=== PATIENT | male | born 1990 | race African-American/Black ===

== ENCOUNTER 2020-09-06 10:10 | Emergency (ER) | payer OTHER ==
--- OUTSIDE RECORDS SUMMARY | 2020-09-06 10:13 | XMS REPORT | Continuity of Care Document ---
:1990 Author Organization [facility] t Address [address] [place] [address] Care Team Providers Name Role Phone Lab, Fam Pob I Attending Clinician Unavailable Doctor Unassigned, Name Attending Clinician Unavailable Ken Sutton Attending Clinician Problems This patient has no known problems. Allergies, Adverse Reactions, Alerts This patient has no known allergies or adverse reactions. Medications This patient has no known medications. Procedures This patient has no known procedures. Encounters Start End Encounter Admission Attending Care Care Encounter Source Date/Time Date/Time Type Type Clinicians Facility Department ID 2019-10-29 2019-10-29 Laboratory Lab, [facility] [id number] 10:54:55 11:14:55 Only Fam Pob I Health [id number] [place] [id number] Professio [phone] [address] 2019-10-29 2019-10-29 Letter Doctor ELISEO [id number] 00:00:00 00:00:00 (Out) Unassigned, HODAN [id number] [place] [facility] [phone] [id number] 2019-10-28 2019-10-28 [place] [facility] [id number] 00:00:00 00:00:00 [facility] [id number] [place] [id number] Professio [phone] [address] Results This patient has no known results.
[2020-09-06] MEDS ORDERED: IBUPROFEN 400 MG TAB ONE (11:18)
--- NOTE | 2020-09-06 11:31 | RAD REPORT ---
EXAM DESCRIPTION: CT - Stone Protocol - 09/06/2020 11:04 am CLINICAL HISTORY: Flank pain. PAIN COMPARISON: No comparisons TECHNIQUE: Axial images were obtained without oral or IV contrast. Lack of contrast limits solid org an and vascular assessment. The [id number]-[id number] spans the entirety of the system partially obscuring uppermost abdomen and lung bases. Coronal reformatted images were obtained and reviewed. All CT scans are performed using dose optimization technique as appropriate and may include automated exposure control or mA/KV adjustment according to patient size. FINDINGS: The lower lung thomas are clear. Imaged portions of the liver and spleen show no suspicious findings on non-contrast imaging. The panc reas and adrenal glands are normal. Tiny fat containing umbilical hernia. No pathologic lymphadenopa thy in the abdomen or pelvis. No urinary tract stones or obstructive uropathy. No bowel obstruction, free air, free fluid or abscess. Normal appendix noted. No significant bony abnormality. IMPRESSION: No urinary tract stones or obstructive uropathy. No acute findings seen.
--- NOTE | 2020-09-06 11:43 | EDPHYS ---
Physician Documentation [facility] Name: Filipe Simons Age: 30 yrs Sex: Male : 1990 Arrival Date: 09/06/2020 Time: 10:16 Bed 5 Private MD: ED Physician Moises Leal HPI: 09/06 15:12 This 30 yrs old Black Male presents to ER via Wheelchair with complaints of Leg Pain, kb Abdominal Pain. 15:12 The patient has not recently seen a physician. kb 15:12 The patient presents with abdominal pain suprapubic/groin area. Onset: The kb symptoms/episode began/occurred today. The symptoms do not radiate. Associated signs and symptoms: none. The symptoms are described as constant. Modifying factors: The symptoms are alleviated by nothing, the symptoms are aggravated by movement. Severity of pain: At its worst the pain was moderate in the emergency department the pain is unchanged. The patient has not experienced similar symptoms in the past. Pt reports he ran out to the car because it was raining and felt a pulling in his groin area. States the pain has been getting worse with ambulation. Historical: - Allergies: 10:27 No Known Allergies; jd3 - Home Meds: 10:27 None [Active]; jd3 - PMHx: 10:27 None; jd3 - PSHx: 10:27 None; jd3 - Immunization history:: Adult Immunizations up to date. - Social history:: Smoking status: Patient denies any tobacco usage or history of. ROS: 15:10 Constitutional: Negative for fever, chills, and weight loss. kb 15:10 Abdomen/GI: Positive for abdominal pain, of the suprapubic area, right lower quadrant and left lower quadrant. 15:10 All other systems are negative. Exam: 15:11 Constitutional: This is a well developed, well nourished patient who is awake, alert, kb and in no acute distress. Head/Face: Normocephalic, atraumatic. ENT: Moist Mucous membranes Cardiovascular: Regular rate and rhythm with a normal S1 and S2. No gallops, murmurs, or rubs. No pulse deficits. Respiratory: Respirations even and unlabored. No increased work of breathing, no retractions or nasal flaring. Abdomen/GI: Soft, non-tender. No distention Back: No spinal tenderness. No costovertebral tenderness. Full range of motion. Skin: Warm, dry with normal turgor. Normal color. MS/ Extremity: Pulses equal, no cyanosis. Neurovascular intact. Full, normal range of motion. Neuro: Awake and alert, GCS 15, oriented to person, place, time, and situation. Moves all extremities. Normal gait. Psych: Awake, alert, with orientation to person, place and time. Behavior, mood, and affect are within normal limits. Vital Signs: 10:27 BP 127 / 84; Pulse 65; Resp 18 S; Temp 97.0(TE); Pulse Ox 99% on R/A; Weight 99.79 kg jd3 (R); Height 5 ft. 9 in. (175.26 cm) (R); Pain 8/10; 11:21 BP 117 / 75; Pulse 61; Resp 16; Pulse Ox 100% ; sv 10:27 Body Mass Index 32.49 (99.79 kg, 175.26 cm) jd3 MDM: 10:28 Patient medically screened. kb 15:11 Data reviewed: vital signs, nurses notes. Data interpreted: Pulse oximetry: on room air kb is 100 %. Interpretation: normal. Counseling: I had a detailed discussion with the patient and/or guardian regarding: the historical points, exam findings, and any diagnostic results supporting the discharge/admit diagnosis, lab results, radiology results, the need for outpatient follow up, a family practitioner, to return to the emergency department if symptoms worsen or persist or if there are any questions or concerns that arise at home. 09/06 10:49 Order name: CT Stone Protocol; Complete Time: 11:34 kb Administered Medications: 10:58 Drug: Ibuprofen 800 mg Route: PO; sv 11:49 Follow up: Response: No adverse reaction sv Disposition: 16:00 Co-signature as Attending Physician, Moises Leal MD. rn Disposition: 09/06/20 11:43 Discharged to Home. Impression: Myalgia. - Condition is Stable. - Discharge Instructions: Muscle Pain, Adult, Muscle Strain, [id number]. - Prescriptions for Cyclobenzaprine 10 mg Oral Tablet - take 1 tablet by ORAL route every 8 hours As needed; 21 tablet. Diclofenac Sodium 75 mg Oral Tablet, Delayed Release (E.C.) - take 1 tablet by ORAL route 2 times per day As needed; 30 tablet. - Medication Reconciliation Form, Thank You Letter, Antibiotic Education, Prescription Opioid Use form. - Follow up: Emergency Department; When: As needed; Reason: Worsening of condition. Follow up: Private Physician; When: 2 - 3 days; Reason: Recheck today's complaints, Continuance of care, Re-evaluation by your physician. Signatures: Dispatcher [employer] EDIN Angie Irvin, NIKKIE-C PILL PACKER-Sobia Elliott RN RN Moises Vela MD MD rn Davies, Jonathon, RN RN jd3 Corrections: (The following items were deleted from the chart) 11:49 11:43 09/06/2020 11:43 Discharged to Home. Impression: Myalgia. Condition is Stable. sv Forms are Medication Reconciliation Form, Thank You Letter, Antibiotic Education, Prescription Opioid Use. Follow up: Emergency Department; When: As needed; Reason: Worsening of condition. Follow up: Private Physician; When: 2 - 3 days; Reason: Recheck today's complaints, Continuance of care, Re-evaluation by your physician. kb
--- NOTE | 2020-09-06 11:43 | ER ---
Nurse's Notes [facility] Name: Filipe Simons Age: 30 yrs Sex: Male : 1990 Arrival Date: 09/06/2020 Time: 10:16 Bed 5 Private MD: Diagnosis: Myalgia Presentation: 09/06 10:25 Chief complaint: Patient states: "I woke up this morning and everything was fine. then jd3 I ran to get into the car because it was raining and I felt something sharp get me right below the belt line. I as I was getting to work the pain was getting worse and now I can barely walk due to the pain.". Coronavirus screen: At this time, the client does not indicate any symptoms associated with coronavirus-19. Ebola Screen: Patient negative for fever greater than or equal to 101.5 degrees Fahrenheit, and additional compatible Ebola Virus Disease symptoms. Initial Sepsis Screen: Does the patient meet any 2 criteria? No. Patient's initial sepsis screen is negative. Does the patient have a suspected source of infection? No. Patient's initial sepsis screen is negative. Risk Assessment: Do you want to hurt yourself or someone else? Patient reports no desire to harm self or others. Onset of symptoms was September 06, 2020. 10:25 Method Of Arrival: Wheelchair jd3 10:25 Acuity: ISABEL 3 jd3 Historical: - Allergies: 10:27 No Known Allergies; jd3 - Home Meds: 10:27 None [Active]; jd3 - PMHx: 10:27 None; jd3 - PSHx: 10:27 None; jd3 - Immunization history:: Adult Immunizations up to date. - Social history:: Smoking status: Patient denies any tobacco usage or history of. Screenin:41 Abuse screen: Denies threats or abuse. Denies injuries from another. Nutritional sv screening: No deficits noted. Tuberculosis screening: No symptoms or risk factors identified. Fall Risk None identified. Assessment: 10:55 General: Appears in no apparent distress. comfortable, well developed, Behavior is sv calm, cooperative, appropriate for age. Pain: Complains of pain in abdomen. Neuro: Level of Consciousness is awake, alert, obeys commands, Oriented to person, place, time, situation, Moves all extremities. Full function Gait is steady. Respiratory: Airway is patent Respiratory effort is even, unlabored, Respiratory pattern is regular, symmetrical. Derm: Skin is intact, Skin is pink, warm \\T\\ dry. 11:49 Reassessment: Patient appears in no apparent distress at this time. No changes from sv previously documented assessment. Patient and/or family updated on plan of care and expected duration. Pain level reassessed. Patient is alert, oriented x 3, equal unlabored respirations, skin warm/dry/pink. Vital Signs: 10:27 BP 127 / 84; Pulse 65; Resp 18 S; Temp 97.0(TE); Pulse Ox 99% on R/A; Weight 99.79 kg jd3 (R); Height 5 ft. 9 in. (175.26 cm) (R); Pain 8/10; 11:21 BP 117 / 75; Pulse 61; Resp 16; Pulse Ox 100% ; sv 10:27 Body Mass Index 32.49 (99.79 kg, 175.26 cm) jd3 ED Course: 10:16 Patient arrived in ED. mr 10:26 Triage completed. jd3 10:27 Arm band placed on. jd3 10:28 Angie Irvin FNP-C is PHCP. kb 10:28 Moises Leal MD is Attending Physician. kb 10:41 Sobia Land, OSCAR is Primary Nurse. sv 10:41 Patient has correct armband on for positive identification. Bed in low position. Call sv light in reach. Door closed. Head of bed elevated. 10:[address] via wheelchair. sv 11:04 CT Stone Protocol In Process Unspecified. EDMS 11:49 No provider procedures requiring assistance completed. Patient did not have IV access sv during this emergency room visit. Administered Medications: 10:58 Drug: Ibuprofen 800 mg Route: PO; sv 11:49 Follow up: Response: No adverse reaction sv Outcome: 11:43 Discharge ordered by . kb 11:49 Discharged to home ambulatory. sv 11:49 Condition: stable 11:49 Discharge instructions given to patient, Instructed on discharge instructions, follow up and referral plans. medication usage, Demonstrated understanding of instructions, follow-up care, medications, Prescriptions given X 2. 11:49 Patient left the ED. sv Signatures: Dispatcher [employer] EDMS Angie Irvin FNP-C FNP-Ckb Verde, Stephanie, RN RN sv Devon, Kmi mr Katy, Casey, RN RN jd3
[2020-09-06 12:18] VITALS: TEMP 97
[2020-09-06 12:19] VITALS: BP 117/75; O2SAT 100
== END 2020-09-06 11:49 | disposition home or self-care (01) ==
LOC: ER 10:10
DX: M79.10 Myalgia, unspecified site (principal)
CPT/HCPCS: 74176; 76377; 99284

== ENCOUNTER 2021-05-25 15:21 | Emergency (ER) | payer OTHER ==
--- OUTSIDE RECORDS SUMMARY | 2021-05-25 15:24 | XMS REPORT | Continuity of Care Document ---
:1990 Author Organization [facility] t Address [address] [place] [address] Care Team Providers Name Role Phone Lab, Fam Pob I Attending Clinician Unavailable Gloria CHILD CARE DEVELOPMENT SPECIALIST Attending Clinician ANENE Attending Clinician Unavailable Doctor Unassigned, Name Attending Clinician Unavailable Ken Sutton Attending Clinician Payers Payer Name Policy Type Policy Number Effective Date Expiration Date S ource Problems Condition Condition Condition Status Onset Resolution Last Treating Co mments Source Name Details Category Date Date Treatment Clinician Date Microscopi Microscopi Disease Active U nivers c c 3-20 [facility] [address] Allergies, Adverse Reactions, Alerts Allergy Allergy Status Severity Reaction(s) Onset Inactive Treating Comm ents Source Name Type Date Date Clinician NO KNOWN Drug Active Univers ALLERGIE Class ity of S [facility] Social History Social Habit Start Date Stop Date Quantity Comments Source Sex Assigned At Universit y of [facility] Tobacco use and 2017-08-03 2017-08-03 Never used Universit y of exposure 00:00:00 00:00:00 [facility] Alcohol intake 2017-08-03 2017-08-03 Current drinker of Un iversity of 00:00:00 00:00:00 alcohol (finding) [facility] Alcohol Comment 2017-05-28 2017-05-28 occasional Universit y of 00:00:00 00:00:00 [facility] Smoking Status Start Date Stop Date Source Never smoker [facility] Medications Ordered Filled Start Stop Current Ordering Indication Dosage Frequency Signature Comments Components Source Medication Medication Date Date Medication? Clinician (SIG) Name Name No known No Univers medications ity of [facility] No known No [facility] medications [facility] No known No Univers medications ity [facility] Procedures This patient has no known procedures. Encounters Start End Encounter Admission Attending Care Care Encounter Source Date/Time Date/Time Type Type Clinicians Facility Department ID 2019-10-29 2019-10-29 Laboratory Lab, [facility] Fam Pob I [facility] [id number] Univers 10:54:55 11:14:55 Only Rosana Warren [id number] ity of [place] [id number] Dominic as Professio [phone] Me dical [address] 2019-10-29 2019-10-29 Laboratory Lab, [facility] [id number] 10:54:55 11:14:55 Only Fam Pob I Health [id number] [place] [id number] Professio [phone] [place] [address] [address] 2019-10-29 2019-10-29 Outpatient R [facility] [id number] Univers 11:00:00 11:00:00 [id number] ity of [facility] 2019-10-29 2019-10-29 [facility] [id number] Univers 11:00:00 11:00:00 ROSANA ity of [facility] 2019-10-29 2019-10-29 Letter Doctor GOMES [id number] Univers 00:00:00 00:00:00 (Out) Unassigned, HODAN [id number] ity of [place] [facility] [id number] Dominic as [phone] [address] 2019-10-29 2019-10-29 Letter Doctor GOMES [id number] 00:00:00 00:00:00 (Out) Unassigned, HODAN [id number] [place] [facility] [id number] [phone] [facility] 2019-10-28 2019-10-28 [facility] [id number] Univers 00:00:00 00:00:00 [facility] [id number] i ty of [place] [id number] Dominic as Professio [phone] [facility] [address] [place] [address] 2019-10-28 2019-10-28 Telephone [place] [facility] [id number] 00:00:00 00:00:00 [facility] [id number] [place] [id number] Professio [phone] [place] [address] [address] Results This patient has no known results.
[2021-05-25 15:50] LABS: Absolute Lymphocytes (CBC) 3.1 K/uL (0.7-4.9); Hematocrit 38.9 % (39.6-49.0); MPV 9.4 fL (7.6-11.3); RBC Red Blood Cell Count 4.39 M/uL (4.33-5.43)
--- NOTE | 2021-05-25 16:12 | RAD REPORT ---
EXAM DESCRIPTION: Amy Single View05/25/2021 3:59 pm CLINICAL HISTORY: Chest pain COMPARISON: none FINDINGS: The lungs appear clear of acute infiltrate. The heart is normal size IMPRESSION: No acute abnormalities displayed
[2021-05-25 16:17] LABS: Potassium 4.5 mmol/L (3.5-5.1); Troponin High Sensitivity 4.3 pg/mL (<58.9)
--- NOTE | 2021-05-25 21:13 | EDPHYS ---
Physician Documentation [facility] Name: Filipe Simons Age: 30 yrs Sex: Male : 1990 Arrival Date: 05/25/2021 Time: 15:32 Bed 15 Private MD: ED Physician Boone Newton HPI: 05/25 15:35 This 30 yrs old Black Male presents to ER via Unassigned with complaints of chest pain. ms3 15:35 The patient or guardian reports chest pain that is located primarily in the substernal ms3 area. The pain does not radiate. Associated signs and symptoms: Pertinent negatives: nausea, shortness of breath, vomiting. The chest pain is described as sore. 30-year-old male with no past medical history presents via [facility] for chest pain that began at 1:30 PM. Patient states his pain is currently a 2/10 and describes being sore. Patient states he has had chest pain intermittently since February. Patient denies shortness of breath, nausea, vomiting, diaphoresis. Patient denies alleviating or inciting factors. EMS states they gave patient 324 mg aspirin prior to arrival.. Historical: - Allergies: 16:00 No Known Allergies; lr4 - Home Meds: 16:00 None [Active]; lr4 - PMHx: 16:00 None; lr4 - PSHx: 16:00 None; lr4 - Immunization history:: Adult Immunizations up to date, Client reports receiving the 2nd dose of the Covid vaccine, Date received: July 15, 2020 Flu vaccine is not up to date. It has been more than one year since last vaccine. - Social history:: Smoking status: Patient denies any tobacco usage or history of. - Family history:: Mother has/had hypertension, Father has/had hypertension. ROS: 15:35 Constitutional: Negative for fever, and chills. ENT: Negative for injury, pain, and ms3 discharge, Neck: Negative for injury, pain, and swelling, Respiratory: Negative for shortness of breath, cough, wheezing, and pleuritic chest pain, Abdomen/GI: Negative for abdominal pain, nausea, vomiting, diarrhea, and constipation, MS/Extremity: Negative for injury and deformity, Skin: Negative for injury, rash, and discoloration, Neuro: Negative for headache, weakness, numbness, tingling. 15:35 Cardiovascular: Positive for chest pain, of the mid-sternal area. Exam: 15:35 Constitutional: This is a well developed, well nourished patient who is awake, alert, ms3 and in no acute distress. Neck: Trachea midline, no cervical lymphadenopathy. Supple, full range of motion without nuchal rigidity, or vertebral point tenderness. No Meningismus. Chest/axilla: Normal chest wall appearance and motion. Nontender with no deformity. Cardiovascular: Regular rate and rhythm with a normal S1 and S2. No gallops, murmurs, or rubs. Normal PMI, no JVD. No pulse deficits. Respiratory: Lungs have equal breath sounds bilaterally, clear to auscultation and percussion. No rales, rhonchi or wheezes noted. No increased work of breathing, no retractions or nasal flaring. Abdomen/GI: Soft, non-tender, with normal bowel sounds. No distension or tympany. No guarding or rebound. No evidence of tenderness throughout. Skin: Warm, dry with normal turgor. Normal color with no rashes, no lesions, and no evidence of cellulitis. MS/ Extremity: Pulses equal, no cyanosis. Neurovascular intact. Full, normal range of motion. Psych: Awake, alert, with orientation to person, place and time. Behavior, mood, and affect are within normal limits. 15:48 ECG was reviewed by the Attending Physician. ms3 Vital Signs: 15:55 BP 129 / 83; Pulse 72; Resp 14; Temp 98.3(O); Pulse Ox 100% on R/A; Weight 97.52 kg; lr4 Height 5 ft. 8 in. (172.72 cm); Pain 2/10; 16:52 BP 122 / 93; Pulse 65; Resp 18; Pulse Ox 100% on R/A; lr4 21:26 BP 129 / 70; Pulse 75; Resp 21; Pulse Ox 98% on R/A; lr4 15:55 Body Mass Index 32.69 (97.52 kg, 172.72 cm) lr4 MDM: 15:34 Patient medically screened. ms3 15:35 Data interpreted:. ms3 16:02 Differential diagnosis: abnormal EKG, acute myocardial infarction, coronary artery ms3 disease. 18:00 Transition of care: After a detail discussion of the patient's case, care is ms3 transferred to Boone Newton MD. 22:21 Data reviewed: vital signs, nurses notes, lab test result(s), radiologic studies. kdr Counseling: I had a detailed discussion with the patient and/or guardian regarding: the historical points, exam findings, and any diagnostic results supporting the discharge/admit diagnosis, lab results, radiology results, the need for outpatient follow up. ED course: Patient remained stable in the ED. He still has some mild residual soreness on his right sternal area but otherwise was without symptoms. He was otherwise stable. He was happy with the care provided and the plan for discharge and follow-up. We discussed the importance of cardiology follow-up. He had one prior episode but no subsequent to follow-up with cardiology. He indicated that this would happen post discharge in the near future.. 05/25 15:34 Order name: Basic Metabolic Panel ms3 05/25 15:34 Order name: CBC with Diff; Complete Time: 16:19 ms3 05/25 15:34 Order name: Troponin HS; Complete Time: 16:19 ms3 05/25 15:34 Order name: XRAY Chest (1 view); Complete Time: 16:19 ms3 05/25 15:35 Order name: Basic Metabolic Panel; Complete Time: 16:19 EDMS 05/25 17:00 Order name: Troponin High Sensitivity: To be drawn at 1830; Complete Time: 20:48 ms3 05/25 15:34 Order name: EKG; Complete Time: 15:35 ms3 05/25 15:34 Order name: Cardiac monitoring; Complete Time: 15:50 ms3 05/25 15:34 Order name: EKG - Nurse/Tech; Complete Time: 15:50 ms3 05/25 15:34 Order name: IV Saline Lock; Complete Time: 15:50 ms3 05/25 15:34 Order name: Labs collected and sent; Complete Time: 15:50 ms3 05/25 15:34 Order name: O2 Per Protocol; Complete Time: 15:50 ms3 05/25 15:34 Order name: O2 Sat Monitoring; Complete Time: 15:50 ms3 05/25 18:25 Order name: Labs - recollect needed: recollect troponin; Complete Time: 18:37 bd 05/25 18:45 Order name: Labs - recollect needed: recollect troponin again, lab will come to bd octaviano.; Complete Time: 19:05 EC:48 Rate is 64 beats/min. Rhythm is regular. QRS [place] is Normal. Clinical impression: No ms3 evidence of ischemia and Incomplete RBBB. Interpreted by me. Administered Medications: No medications were administered Disposition Summary: 05/25/21 21:12 Discharge Ordered Location: Home kdr Problem: new kdr Symptoms: have improved kdr Condition: Stable kdr Diagnosis - Chest pain, unspecified kdr Followup: kdr - With: Private Physician - When: 2 - 3 days - Reason: If symptoms return, Further diagnostic work-up, Recheck today's complaints, Continuance of care, Re-evaluation by your physician Discharge Instructions: - Discharge Summary Sheet kdr - Nonspecific Chest Pain, Adult kdr Forms: - Medication Reconciliation Form kdr - Thank You Letter kdr - Antibiotic Education kdr - Prescription Opioid Use kdr - Work release form ke1 Signatures: Dispatcher [employer] EDXiomara Heredia Kevin, MD MD kdr Sims, Marcus, DO DO ms3 Chanelle Grimes, RN RN lr4
--- NOTE | 2021-05-25 21:13 | ER ---
Nurse's Notes [facility] Name: Filipe Simons Age: 30 yrs Sex: Male : 1990 Arrival Date: 05/25/2021 Time: 15:32 Bed 15 Private MD: Diagnosis: Chest pain, unspecified Presentation: 05/25 15:55 Chief complaint: Patient states: Pt bib EMS from work for dull midsternal cp starting lr4 after picking up something heavy while working. Pt rates pain a 2/10 at present and describes it as soreness. Pt given (3) 81mg aspirin en route. Coronavirus screen: Vaccine status: Patient reports receiving the 2nd dose of the covid vaccine. Date July 15, 2020. Ebola Screen: Patient negative for fever greater than or equal to 101.5 degrees Fahrenheit, and additional compatible Ebola Virus Disease symptoms. Initial Sepsis Screen: Does the patient meet any 2 criteria? No. Patient's initial sepsis screen is negative. Does the patient have a suspected source of infection? No. Patient's initial sepsis screen is negative. Risk Assessment: Do you want to hurt yourself or someone else? Patient reports no desire to harm self or others. Onset of symptoms was May 25, 2021 at 15:00. 15:55 Method Of Arrival: EMS lr4 15:55 Acuity: ISABEL 3 lr4 Triage Assessment: 16:00 General: Appears in no apparent distress. comfortable, Behavior is calm, cooperative. lr4 Pain: Complains of pain in chest Pain does not radiate. Pain currently is 2 out of 10 on a pain scale. Neuro: No deficits noted. Cardiovascular: Denies diaphoresis, fatigue, lightheadedness, nausea, shortness of breath, Heart tones S1 S2 Capillary refill < 3 seconds Pulses are all present. Rhythm is sinus rhythm Chest pain is described as vague, mild, began 1 hour prior to arrival. Respiratory: No deficits noted. Historical: - Allergies: 16:00 No Known Allergies; lr4 - Home Meds: 16:00 None [Active]; lr4 - PMHx: 16:00 None; lr4 - PSHx: 16:00 None; lr4 - Immunization history:: Adult Immunizations up to date, Client reports receiving the 2nd dose of the Covid vaccine, Date received: July 15, 2020 Flu vaccine is not up to date. It has been more than one year since last vaccine. - Social history:: Smoking status: Patient denies any tobacco usage or history of. - Family history:: Mother has/had hypertension, Father has/had hypertension. Screenin:04 Abuse screen: Denies threats or abuse. Nutritional screening: No deficits noted. lr4 Tuberculosis screening: No symptoms or risk factors identified. Fall Risk None identified. Assessment: 16:02 General: Appears in no apparent distress. comfortable, Behavior is calm, cooperative. lr4 Pain: Complains of pain in chest Pain currently is 2 out of 10 on a pain scale. Quality of pain is described as aching, Pain began 1 hour ago. Is continuous, Alleviated by medications, rest. Neuro: No deficits noted. Cardiovascular: Reports chest pain, Denies fatigue, lightheadedness, shortness of breath, Heart tones S1 S2 Pulses are all present. Respiratory: No deficits noted. GI: No deficits noted. : No deficits noted. Vital Signs: 15:55 BP 129 / 83; Pulse 72; Resp 14; Temp 98.3(O); Pulse Ox 100% on R/A; Weight 97.52 kg; lr4 Height 5 ft. 8 in. (172.72 cm); Pain 2/10; 16:52 BP 122 / 93; Pulse 65; Resp 18; Pulse Ox 100% on R/A; lr4 21:26 BP 129 / 70; Pulse 75; Resp 21; Pulse Ox 98% on R/A; lr4 15:55 Body Mass Index 32.69 (97.52 kg, 172.72 cm) lr4 ED Course: 15:32 Patient arrived in ED. lr4 15:34 Maxx Morris DO is Attending Physician. ms3 15:50 CBC with Diff Sent. mh5 15:50 Troponin HS Sent. 5 15:50 Basic Metabolic Panel Sent. 5 15:50 Basic Metabolic Panel Sent. 5 15:50 Initial lab(s) drawn, by ED staff, sent to lab. EKG done, by ED staff, reviewed by [facility] Maxx Morris DO. Maintain EMS IV. Dressing intact. Good blood return noted. Site clean \T\ dry. 15:50 Patient has correct armband on for positive identification. Bed in low position. Call [facility] light in reach. Side rails up X 1. security monitor on. Pulse ox on. NIBP on. 15:54 Chanelle Grimes, RN is Primary Nurse. lr4 15:55 XRAY Chest (1 view) Sent. lr4 15:59 XRAY Chest (1 view) In Process Unspecified. EDMS 15:59 Triage completed. lr4 16:04 No provider procedures requiring assistance completed. Maintain EMS IV. Dressing lr4 intact. Good blood return noted. Site clean \T\ dry. 16:04 EKG completed in triage. Results shown to MD. lr4 16:04 Arm band placed on left wrist. EKG done per protocol. Labs ordered per protocol. Drawn lr4 by ED staff. X-ray ordered. 17:16 Troponin High Sensitivity: To be drawn at 1830 Sent. mh5 18:37 Troponin High Sensitivity: To be drawn at 1830 Sent. lr4 21:09 Attending Physician role handed off by Maxx Morris DO ms3 21:09 Boone Newton MD is Attending Physician. ms3 21:26 IV discontinued, intact, bleeding controlled, No redness/swelling at site. Pressure lr4 dressing applied. Administered Medications: No medications were administered Outcome: 16:04 Condition: stable lr4 19:47 Discharged to home ambulatory. lr4 19:47 Discharge instructions given to patient, family. 21:12 Discharge ordered by . kdr 21:27 Patient left the ED. lr4 Signatures: Dispatcher [employer] EDMS Boone Newton MD MD kdr Martinez, Maria 5 Maxx Morris DO DO ms3 Chanelle Grimes, RN RN lr4 Corrections: (The following items were deleted from the chart) 16:04 15:55 Chief complaint: Patient states: Pt bib EMS from work for dull midsternal cp lr4 starting after picking up something heavy while working. Pt rates pain a 2/10 at present and describes it as soreness. lr4
[2021-05-25 21:32] VITALS: TEMP 98.3
[2021-05-25 21:34] VITALS: BP 129/70; O2SAT 98
--- NOTE | 2021-05-30 08:35 | EKG ---
Test Date: 2021-05-25 Test Time: 15:48:28 [employer] Teacher: EZEQUIEL MEASUREMENT RESULTS: Intervals: Rate: 64 UT: 144 QRSD: 106 QT: 398 QTc: 410 [place]: P: 60 UT: 144 QRS: 61 T: 54 INTERPRETIVE STATEMENTS: Normal sinus rhythm Incomplete right bundle branch block Borderline ECG No previous ECG available for comparison Electronically Signed On 05-30-21 08:24:31 CDT by David Blanco
== END 2021-05-25 21:27 | disposition home or self-care (01) ==
LOC: ER 15:21
DX: R07.9 Chest pain, unspecified (principal)
CPT/HCPCS: 36415; 71045; 80048; 84484; 85025; 93005; 99284

== ENCOUNTER 2024-03-17 17:43 | Emergency (ER) | payer OTHER ==
--- OUTSIDE RECORDS SUMMARY | 2024-03-17 17:45 | XMS REPORT | Continuity of Care Document ---
Author Name Unknown Address [address] [facility] [address] [place] [address] 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 Name Role Phone Nicole Sutton Primary Care Physician + [phone] Doctor Unassigned, [place] Attending Clinician U navailable Lab, Adc Fam Pob I Attending Clinician Unavailab Rosana Bliss Attending Clinician +[phone] ROSANA CASTRO Attending Clinician Unavailable Nicole Sutton Attending Clinician +[phone] Payers Payer Name Policy Type Policy Number Effective Date Expirati on Date Source Problems Condition Name Condition Details Condition Category Status Onset Date Resolution Date Last Treatment Date Treating Clinician Comments Source Microscopi c hematuria Microscopi c hematuria Disease Active 05-29 00:00: 00 [facility] Allergies, Adverse Reactions, Alerts Allergy Name Allergy Type Status Severity Reaction(s) Onset Date Inactive Date Treating Clinician Comments Source NO KNOWN ALLERGIE S Drug Class Active [facility] Social History Social Habit Start Date Stop Date Quantity Comments Source [facility] 2017-08-03 00:00:00 2017-08-03 00:00:00 Current drinker of alcohol (finding) [facility] History of Social function 2017-05-28 00:00:00 2017-05-28 00:00:00 [facility] Tobacco use and exposure 2017-05-28 00:00:00 2017-05-28 00:00:00 Smokeless tobacco non-user [facility] Alcohol Comment 2017-05-28 00:00:00 2017-05-28 00:00:00 occasional [facility] Sex Assigned At 1990 00:00:00 1990 00:00:00 [facility] Smoking Status Start Date Stop Date Source Never smoked tobacco [facility] Medications Ordered Medication Name Filled Medication Name Start Date Stop Date Current Medication? Ordering Clinician Indication Dosage Frequency Signature (SIG) Comments Components Source No known medications No Un john [facility] Encounters Start Date/Time End Date/Time Encounter Type Admission Type Attending Clinicians Care Facility Care Department Encounter ID Source 2019-10-30 00:00:00 2019-10-30 00:00:00 Patient Secure Msg Doctor Unassigned, [place] [facility] OIL R[facility] 1.114 [id number] [facility] 2019-10-29 10:54:55 2019-10-29 11:14:55 Laboratory Only Lab, [facility] Pob I Rosana Castro [facility] One 1.114 [id number] [facility] 2019-10-29 10:54:55 2019-10-29 11:14:55 [facility] One .[id number] [id number] 2019-10-29 11:00:00 2019-10-29 11:00:00 Outpatient R ROSANA CASTRO [facility] [id number] [facility] 2019-10-29 00:00:00 2019-10-29 00:00:00 Letter (Out) Doctor Unassigned, [place] [facility] [id number] [facility] 2019-10-29 00:00:00 2019-10-29 00:00:00 Letter (Out) Doctor Unassigned, [place] [facility] [id number] 2019-10-28 00:00:00 2019-10-28 00:00:00 Telephone Nicole Chawla [facility] Building One ..114 [id number] [facility] 2019-10-28 00:00:00 2019-10-28 00:00:00 Telephone Layla Chawlae Ken [facility] Building One ..114 [id number]
[2024-03-17] MEDS ORDERED: HYDROCODONE/APAP 5/325 MG TAB ONE (17:49)
[2024-03-17] MEDS ORDERED: KETOROLAC 30 MG/ML INJ ONE (17:49)
--- NOTE | 2024-03-17 18:36 | RAD REPORT ---
Procedure: Chest Pa And Lat (2 Views) HISTORY: Chest pain COMPARISON: 2021 FINDINGS: The lungs appear clear of acute infiltrate. No significant pleural effusion noted. The heart is normal size. IMPRESSION: No acute abnormality is displayed.
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
[2024-03-17 19:43] VITALS: BP 148/86
== END 2024-03-17 18:58 | disposition home or self-care (01) ==
LOC: ER 17:43
DX: S29.9XXA Unspecified injury of thorax, initial encounter (principal); V43.52XA Car driver injured in collision with other type car in traffic accident, initial encounter; Y93.89 Activity, other specified; Y92.410 Unspecified street and highway as the place of occurrence of the external cause
CPT/HCPCS: 71046; 96372; 99284